=== PATIENT | female | born 1980 | race Caucasian/White ===

== ENCOUNTER 2016-07-07 08:57 | Emergency (ER) | payer MEDICARE ==
[2016-07-07 10:45] LABS: BASOPHILS 0.4 % (0.0-2.0); EOSINOPHILS 2.5 % (0-7); HEMATOCRIT 46.1 % (36.0-48.0); HEMOGLOBIN 15.1 g/dL (12-16); IMMATURE GRANULOCYTES 0.3 % (0-5); MCH 29.9 pg (26.0-34.0); MCHC 32.8 g/dL (31.0-37.0); MCV 91.3 fL (80.0-100.0); MEAN PLATELET VOLUME 10.3 fL (7.4-10.4); MONOCYTES 6.4 % (2-11); NEUTROPHILS 58.4 % (40-80); PLATELET COUNT 279 10x3/uL (130-400); RBC 5.05 10x6/uL (4.00-5.40); RDW 13.3 % (11.5-14.5); WBC 10.3 10x3/uL (4.8-10.8)
[2016-07-07 10:48] LABS: APPEARANCE HAZY (CLEAR); COLOR YELLOW (YELLOW); GLUCOSE NEGATIVE (NEGATIVE); KETONE NEGATIVE (NEGATIVE); LEUKOCYTE ESTERASE TRACE (NEGATIVE); NITRITE NEGATIVE (NEGATIVE); PROTEIN NEGATIVE (NEGATIVE)
[2016-07-07 10:49] LABS: BILIRUBIN NEGATIVE (NEGATIVE); EPITHELIAL CELLS 0-5 /hpf (0-5); UROBILINOGEN NORMAL (NORMAL); WHITE CELLS - URINE 0-5 /hpf (0-5)
[2016-07-07 10:50] LABS: BACTERIA MODERATE /hpf (NONE SEEN); MUCUS <1+ /lpf (NONE SEEN)
[2016-07-07 10:57] LABS: CALC OSMOLALITY 279 mosm/kg (275-300); CALCIUM 8.9 mg/dL (8.5-10.1); CHLORIDE - SERUM 104 mmol/L (98-107); CREATININE - SERUM 0.7 mg/dL (0.6-1.3); GLUCOSE 94 mg/dL (74-106); SODIUM 140 mmol/L (136-145); UREA NITROGEN 14 mg/dL (7-18); eGFR NON AFRICAN AMERICAN > 90 mL/min (90-120)
== END 2016-07-07 12:17 | disposition home or self-care (01) ==
LOC: D.ER 08:57
PROVIDERS: Emergency Medicine Emergency Medical Services
DX: R10.9 Unspecified abdominal pain (principal); J20.9 Acute bronchitis, unspecified; M62.838 Other muscle spasm; F41.9 Anxiety disorder, unspecified; G40.909 Epilepsy, unspecified, not intractable, without status epilepticus

== ENCOUNTER 2018-01-01 20:31 | Emergency (ER) | payer MEDICARE ==
[~2018-01-01] VITALS: Ht 165.1 cm; Wt 109.1 kg
[2018-01-01 21:21] VITALS: Ht 165.1 cm; Wt 109.1 kg
[2018-01-01 21:56] LABS: APPEARANCE CLEAR (CLEAR); COLOR YELLOW (YELLOW); GLUCOSE NEGATIVE (NEGATIVE); KETONE NEGATIVE (NEGATIVE); NITRITE NEGATIVE (NEGATIVE); PROTEIN NEGATIVE (NEGATIVE)
[2018-01-01 21:57] LABS: BILIRUBIN NEGATIVE (NEGATIVE); UROBILINOGEN NORMAL (NORMAL)
[2018-01-01 22:57] LABS: BASOPHILS 0.5 % (0-2); EOSINOPHILS 2.6 % (0-7); HEMOGLOBIN 14.2 g/dL (12-16); IMMATURE GRANULOCYTES 0.2 % (0-5); LYMPHOCYTES 35.8 % (15-50); MCH 30.1 pg (26.0-34.0); MCV 91.1 fL (80.0-100.0); MONOCYTES 7.7 % (2-11); NEUTROPHILS 53.2 % (40-80); PLATELET COUNT 258 10x3/uL (130-400); RBC 4.72 10x6/uL (4.00-5.40); RDW 14.3 % (11.5-14.5); WBC 9.6 10x3/uL (4.8-10.8)
[2018-01-01 23:22] LABS: ALBUMIN 3.1 g/dL (3.4-5.0); ANION GAP 6.3 mmol/L (8-16); BILIRUBIN - TOTAL 0.15 mg/dL (0.2-1.3); CALCIUM 8.2 mg/dL (8.5-10.1); CARBON DIOXIDE 30.7 mmol/L (21.0-32.0); PROTEIN - SERUM 6.6 g/dL (6.4-8.2)
[2018-01-02] MEDS ORDERED: HYDROCODON-ACE1 EAC7 PO (02:18)
[2018-01-02 02:42] VITALS: BP 123/85
== END 2018-01-02 02:44 | disposition home or self-care (01) ==
LOC: D.ER 20:31
PROVIDERS: Emergency Medicine
DX: R30.0 Dysuria (principal); R10.9 Unspecified abdominal pain; I10 Essential (primary) hypertension; Z86.59 Personal history of other mental and behavioral disorders; F17.200 Nicotine dependence, unspecified, uncomplicated

== ENCOUNTER 2018-04-04 20:56 | Emergency (ER) | payer MEDICARE ==
[~2018-04-04] VITALS: Ht 165.1 cm; Wt 113.4 kg
[~2018-04-04 20:56] MED LIST: HYDROCODON-ACE1 EAC7 PO
[2018-04-04 21:01] VITALS: Ht 165.1 cm; Wt 113.4 kg
[2018-04-04 22:19] VITALS: BP 128/96
== END 2018-04-04 22:19 | disposition home or self-care (01) ==
LOC: D.ER 20:56
DX: L76.82 Other postprocedural complications of skin and subcutaneous tissue (principal); I10 Essential (primary) hypertension; Z86.59 Personal history of other mental and behavioral disorders; F17.200 Nicotine dependence, unspecified, uncomplicated

== ENCOUNTER 2019-03-09 17:15 | Emergency (ER) | payer MEDICARE ==
[~2019-03-09] VITALS: Ht 165.1 cm; Wt 120.5 kg
[2019-03-09 17:38] VITALS: Ht 165.1 cm; Wt 120.5 kg
[2019-03-09] MEDS ORDERED: SEROQUEL400 MG PO (17:40)
[2019-03-09] MEDS ORDERED: DEPAKOTE500 MG PO (17:40)
[2019-03-09] MEDS ORDERED: KLONOPIN1 MG PO (17:40)
[2019-03-09] MEDS ORDERED: PROZAC20 MG PO (17:40)
[2019-03-09] MEDS ORDERED: CYCLOBENZAPRINE10 MG PO (17:41)
[2019-03-09] MEDS ORDERED: ALBUTEROL SULF8.5 GM INH (17:41)
[2019-03-09] MEDS ORDERED: SUMATRIPTAN SUC25 MG PO (17:41)
[2019-03-09 17:59] LABS: BASOPHILS 0.4 % (0-2); EOSINOPHILS 2.6 % (0-7); HEMATOCRIT 45.3 % (36.0-48.0); HEMOGLOBIN 14.9 g/dL (12-16); IMMATURE GRANULOCYTES 0.5 % (0-5); LYMPHOCYTES 35.1 % (15-50); MCH 30.2 pg (26.0-34.0); MCHC 32.9 g/dL (31.0-37.0); MCV 91.9 fL (80.0-100.0); MEAN PLATELET VOLUME 9.7 fL (7.4-10.4); MONOCYTES 6.4 % (2-11); PLATELET COUNT 293 10x3/uL (130-400); RBC 4.93 10x6/uL (4.00-5.40); RDW 14.8 % (11.5-14.5); WBC 10.8 10x3/uL (4.8-10.8)
[2019-03-09 18:18] LABS: UDS - AMPHET NEGATIVE QUAL (NEGATIVE); UDS - BARB NEGATIVE QUAL (NEGATIVE); UDS - BENZO NEGATIVE QUAL (NEGATIVE); UDS - COCAINE NEGATIVE QUAL (NEGATIVE); UDS - OPIATE POSITIVE QUAL (NEGATIVE); UDS - THC NEGATIVE QUAL (NEGATIVE)
[2019-03-09 18:20] LABS: ANION GAP 8.7 mmol/L (8-16); CARBON DIOXIDE 32.9 mmol/L (21.0-32.0); POTASSIUM - SERUM 3.6 mmol/L (3.5-5.1)
[2019-03-09 18:26] LABS: ALBUMIN 3.3 g/dL (3.4-5.0); BILIRUBIN - TOTAL 0.24 mg/dL (0.2-1.3); PROTEIN - SERUM 7.8 g/dL (6.4-8.2)
[2019-03-09 18:32] LABS: UDS - PCP NEGATIVE QUAL (NEGATIVE)
[2019-03-09 18:36] LABS: APPEARANCE CLEAR (CLEAR); COLOR YELLOW (YELLOW)
[2019-03-09 18:38] LABS: BILIRUBIN NEGATIVE (NEGATIVE); GLUCOSE NEGATIVE (NEGATIVE); KETONE NEGATIVE (NEGATIVE); NITRITE NEGATIVE (NEGATIVE); PROTEIN NEGATIVE (NEGATIVE); UROBILINOGEN NORMAL (NORMAL)
[2019-03-09 18:41] LABS: RED CELLS - URINE OCC /hpf (0-5); WHITE CELLS - URINE 0-5 /hpf (NEGATIVE)
[2019-03-09 18:43] LABS: BACTERIA MANY /hpf (NEGATIVE); EPITHELIAL CELLS 0-5 /hpf (0-5)
[2019-03-09 22:21] VITALS: BP 132/71
== END 2019-03-09 22:22 ==
LOC: D.ER 17:15
PROVIDERS: Family Medicine
DX: R45.851 Suicidal ideations (principal); R45.850 Homicidal ideations